=== PATIENT | male | born 1960 | race Caucasian/White ===

== ENCOUNTER 2016-09-29 09:39 | Emergency (ER) | payer OTHER, MEDICARE | END 2016-09-29 12:03 | disposition home or self-care (01) | LOC: FER 09:39 | DX: Z86.2 Personal history of diseases of the blood and blood-forming organs and certain disorders involving the immune mechanism (principal); Z88.0 Allergy status to penicillin | CPT/HCPCS: 93971; J1885 ==

== ENCOUNTER 2020-08-27 05:32 | Day surgery (SDC) | payer OTHER, MEDICARE ==
[~2020-08-27 05:32] MED LIST: ABILIFY5 M1 PO; ASPIRIN EC81 MG PO; ATIVAN1 MG PO; AZITHROMYCIN250 MG PO; BREO ELLIPTA 11 EACH INH; BUPROPION XL300 MG PO; CEFDINIR300 MG PO; COZAAR100 MG PO; COZAAR50 MG PO; DERMACINRX5000 UNIT PO; FLOMAX0.4 MG PO; LAMICTAL100 MG PO; LOPRESSOR50 MG PO; METHADONE 5MG TA5 MG PO; METHADONE10 MG PO; MIRALAX17 GM PO; NEURONTIN400 MG PO; OXYCODON-ACETA1 EAC1 PO; OXYCONTIN 10MG10 MG PO; PROCTOZONE-HC 230 GM TOP; PROTONIX 40MG T40 MG PO; QUDEXY XR25 MG PO; SEROQUEL 100MG100 MG PO; SERTRALINE HCL100 MG PO; SPIRIVA18 MCG INH; STOOL SOFTENER100 M1 PO; TOPAMAX50 MG PO; VENTOLIN HFA IN18 GM INH; VITAMIN B-1100 MG PO
[2020-08-27] MEDS ORDERED: PERCOCET 5-3251 EACH PO (06:35)
--- NOTE | 2020-08-27 15:11 | NUR ---
MET WITH PT. HE STATED THAT HE WANTS [facility] FOR PT/OT AND NURSING ASSESSMENT. ORDERED A ROLLING WALKER FROM [employer]. SPOKE WITH JENNIFER AT [facility] [phone]. PT. CO PAY FOR CHRIS IS $15.66.
[2020-08-28 06:12] LABS: BASOPHIL 0.6 % (0-2); EOSINOPHIL 0.2 % (0-5); HCT 26.5 % (42.0-52.0); HGB 8.4 g/dl (13.2-18.0); LYMPHOCYTE 12.6 % (15-48); MCH 27.7 pg (25.0-31.0); MCHC 31.7 g/dL (32.0-36.0); MCV 87.5 fL (78.0-100.0); MONOCYTE 10.7 % (0-12); MPV 10.3 fL (6.0-9.5); NEUTROPHIL 75.3 % (41-80); NRBC 0; PLT 221 K/uL (150-400); RBC 3.03 M/uL (4.70-6.00); RDW 17.3 % (11.5-14.0); WBC 10.7 K/uL (4.0-10.5)
[2020-08-28 06:32] LABS: BUN/CREAT RATIO (CALC) 23.7 RATIO; CREATININE 0.93 mg/dL (0.67-1.17)
[2020-08-28] MEDS ORDERED: ULTRA-LIGHT RO1 EACH XX (08:45)
[2020-08-28] MEDS ORDERED: FEOSOL325 MG PO (08:48)
[2020-08-28] MEDS ORDERED: XARELTO10 MG PO (08:48)
== END 2020-08-28 12:13 | disposition home health service (06) ==
LOC: FAS 05:32 → FMS 07:45
PROVIDERS: Orthopaedic Surgery
DX: M17.11 Unilateral primary osteoarthritis, right knee (principal); M21.161 Varus deformity, not elsewhere classified, right knee; I10 Essential (primary) hypertension; J44.9 Chronic obstructive pulmonary disease, unspecified; F41.9 Anxiety disorder, unspecified; F32.9 Major depressive disorder, single episode, unspecified; Z79.82 Long term (current) use of aspirin; Z79.899 Other long term (current) drug therapy; Z88.6 Allergy status to analgesic agent; Z88.0 Allergy status to penicillin
CPT/HCPCS: 36415; 73560; 80048; 85025; 86850; 86900; 86901; 94010; 94762; 97110; 97116; 97162; 97166; 97530-GP; 97535; C1713; C1776; J0171; J1100; J1170; J1885; J2250; J2704; J2795; J3010; J3370; J7050; J7120

== ENCOUNTER 2020-08-31 04:37 | Inpatient (IN) | payer OTHER, MEDICARE ==
[~2020-08-31 04:37] MED LIST changes: +FEOSOL325 MG PO; +PERCOCET 5-3251 EACH PO; +ULTRA-LIGHT RO1 EACH XX; +XARELTO10 MG PO
[2020-08-31 04:58] LABS: BASOPHIL 0.6 % (0-2); EOSINOPHIL 1.7 % (0-5); HCT 26.1 % (42.0-52.0); LYMPHOCYTE 17.8 % (15-48); MCH 27.6 pg (25.0-31.0); MCHC 30.7 g/dL (32.0-36.0); MPV 11.1 fL (6.0-9.5); NEUTROPHIL 69.3 % (41-80); NRBC 0; PLT 245 K/uL (150-400); RDW 17.8 % (11.5-14.0); WBC 9.6 K/uL (4.0-10.5)
[2020-08-31 05:08] LABS: INR 1.17 (0.9-1.2); PROTHROMBIN TIME 14.1 SECONDS (11.4-13.6)
[2020-08-31 05:09] LABS: PTT 32.6 SECONDS (22.2-34.7)
[2020-08-31 05:15] LABS: BILIRUBIN - TOTAL 0.4 mg/dL (0.2-1.0); BUN/CREAT RATIO (CALC) 11.6 RATIO; CREATININE 0.95 mg/dL (0.67-1.17); GLOBULIN (CALCULATION) 3.4 g/dL; TOTAL PROTEIN 6.4 g/dL (6.4-8.2)
[2020-09-01 07:05] LABS: BASOPHIL 0.1 % (0-2); EOSINOPHIL 0.1 % (0-5); HCT 21.8 % (42.0-52.0); HGB 6.7 g/dl (13.2-18.0); LYMPHOCYTE 8.9 % (15-48); MCH 27.6 pg (25.0-31.0); MCHC 30.7 g/dL (32.0-36.0); MCV 89.7 fL (78.0-100.0); MONOCYTE 8.9 % (0-12); MPV 10.8 fL (6.0-9.5); NEUTROPHIL 81.3 % (41-80); NRBC 0; PLT 252 K/uL (150-400); RBC 2.43 M/uL (4.70-6.00); RDW 17.5 % (11.5-14.0); WBC 14.7 K/uL (4.0-10.5)
[2020-09-01 07:23] LABS: BUN/CREAT RATIO (CALC) 13.6 RATIO; CREATININE 0.81 mg/dL (0.67-1.17); POTASSIUM 4.1 mmol/L (3.5-5.1)
[2020-09-02 10:20] LABS: BASOPHIL 0.8 % (0-2); EOSINOPHIL 1.8 % (0-5); HCT 28.2 % (42.0-52.0); LYMPHOCYTE 18.3 % (15-48); MCH 28.9 pg (25.0-31.0); MCHC 31.6 g/dL (32.0-36.0); MCV 91.6 fL (78.0-100.0); MPV 10.5 fL (6.0-9.5); NEUTROPHIL 67.3 % (41-80); NRBC 0; PLT 276 K/uL (150-400); RBC 3.08 M/uL (4.70-6.00); RDW 17.3 % (11.5-14.0); WBC 11.6 K/uL (4.0-10.5)
[2020-09-02 10:30] LABS: HGB 8.9 g/dl (13.2-18.0)
[2020-09-04 09:49] LABS: BASOPHIL 0.8 % (0-2); EOSINOPHIL 2.8 % (0-5); HCT 28.6 % (42.0-52.0); HGB 8.8 g/dl (13.2-18.0); LYMPHOCYTE 16.6 % (15-48); MCH 28.8 pg (25.0-31.0); MCHC 30.8 g/dL (32.0-36.0); MCV 93.5 fL (78.0-100.0); MONOCYTE 12.7 % (0-12); MPV 10.1 fL (6.0-9.5); NEUTROPHIL 66.1 % (41-80); NRBC 0; PLT 371 K/uL (150-400); RBC 3.06 M/uL (4.70-6.00); WBC 10.6 K/uL (4.0-10.5)
[2020-09-04 10:15] LABS: BUN/CREAT RATIO (CALC) 14.6 RATIO; CREATININE 1.03 mg/dL (0.67-1.17); POTASSIUM 3.5 mmol/L (3.5-5.1)
[2020-09-04] MEDS ORDERED: METHADONE 5MG TA5 MG PO (13:36)
[2020-09-04] MEDS ORDERED: ACETAMINOPHEN325 MG PO (13:36)
[2020-09-04] MEDS ORDERED: MILK OF MA400 MG/5 M PO (13:36)
[2020-09-04] MEDS ORDERED: LAXATIVE SUPPOS10 MG PR (13:36)
[2020-09-04] MEDS ORDERED: ZOFRAN4 M1 PO (13:36)
[2020-09-04] MEDS ORDERED: BUSPIRONE HCL15 MG PO (13:36)
[2020-09-04] MEDS ORDERED: OXY-IR 5MG5 MG PO (13:36)
[2020-09-04] MEDS ORDERED: STIMULANT LAXA1 EACH PO (13:36)
[2020-09-04] MEDS ORDERED: CLONAZEPAM0.5 MG PO ×3 (13:36→13:56)
[2020-09-04] MEDS ORDERED: FEOSOL325 MG PO (13:36)
[2020-09-04] MEDS ORDERED: TAB-A-VITE TA400 MC1 PO (13:36)
[2020-09-04] MEDS ORDERED: XARELTO10 MG PO (13:36)
== END 2020-09-04 15:45 | DRG 501 ==
LOC: FER 04:37 → FMS 08:01
PROVIDERS: Emergency Medicine; Nurse Practitioner Adult Health; Orthopaedic Surgery; ADMIT Allergy & Immunology Allergy
PROC: 0LQQ0ZZ Repair Right Knee Tendon, Open Approach (ICD-10-PCS; principal; 2020-08-31 11:30)
PROC: 0LQL0ZZ Repair Right Upper Leg Tendon, Open Approach (ICD-10-PCS; 2020-08-31 11:30)
PROC: 30233N1 Transfusion of Nonautologous Red Blood Cells into Peripheral Vein, Percutaneous Approach (ICD-10-PCS; 2020-09-01)
DX: S76.111A Strain of right quadriceps muscle, fascia and tendon, initial encounter (principal); T81.31XA Disruption of external operation (surgical) wound, not elsewhere classified, initial encounter; D62 Acute posthemorrhagic anemia; T84.022A Instability of internal right knee prosthesis, initial encounter; W19.XXXA Unspecified fall, initial encounter; F32.9 Major depressive disorder, single episode, unspecified; F41.9 Anxiety disorder, unspecified; S83.194A Other dislocation of right knee, initial encounter; G89.4 Chronic pain syndrome; J44.9 Chronic obstructive pulmonary disease, unspecified; Z20.822 Contact with and (suspected) exposure to COVID-19; Y83.8 Other surgical procedures as the cause of abnormal reaction of the patient, or of later complication, without mention of misadventure at the time of the procedure
CPT/HCPCS: 36415; 36430; 71045; 73560; 80048; 80053; 85025; 85610; 85730; 86850; 86900; 86901; 86922; 93005; 94010; 97110; 97116; 97162; 97166; 97530; 97530-GP; J1100; J1170; J1956; J2250; J2370; J2405; J2704; J2795; J3010; J7030; P9016; U0002

== ENCOUNTER 2021-02-20 07:18 | Emergency (ER) | payer MEDICARE ==
[~2021-02-20 07:18] MED LIST changes: +ACETAMINOPHEN325 MG PO; +BUSPIRONE HCL15 MG PO; +CLONAZEPAM0.5 MG PO; +LAXATIVE SUPPOS10 MG PR; +MILK OF MA400 MG/5 M PO; +OXY-IR 5MG5 MG PO; +STIMULANT LAXA1 EACH PO; +TAB-A-VITE TA400 MC1 PO; +ZOFRAN4 M1 PO
[2021-02-20 08:19] LABS: BASOPHIL 1.1 % (0-2); EOSINOPHIL 1.1 % (0-5); HCT 42.8 % (42.0-52.0); HGB 13.8 g/dl (13.2-18.0); LYMPHOCYTE 16.4 % (15-48); MCH 29.7 pg (25.0-31.0); MCHC 32.2 g/dL (32.0-36.0); MONOCYTE 8.3 % (0-12); MPV 11.1 fL (6.0-9.5); NEUTROPHIL 70.8 % (41-80); NRBC 0; PLT 286 K/uL (150-400); RBC 4.65 M/uL (4.70-6.00); RDW 17.3 % (11.5-14.0); WBC 11.2 K/uL (4.0-10.5)
[2021-02-20 08:50] LABS: ALBUMIN 3.7 g/dL (3.4-5.0); BILIRUBIN - TOTAL 0.4 mg/dL (0.2-1.0); BUN/CREAT RATIO (CALC) 17.5 RATIO; CREATININE 1.2 mg/dL (0.67-1.17); GLOBULIN (CALCULATION) 4.1 g/dL; POTASSIUM 4.7 mmol/L (3.5-5.1); TOTAL PROTEIN 7.8 g/dL (6.4-8.2)
== END 2021-02-20 11:24 | disposition home or self-care (01) ==
LOC: FER 07:18
PROVIDERS: Internal Medicine
DX: U07.1 COVID-19 (principal); N17.9 Acute kidney failure, unspecified; M54.9 Dorsalgia, unspecified; J44.9 Chronic obstructive pulmonary disease, unspecified; I10 Essential (primary) hypertension; Z90.49 Acquired absence of other specified parts of digestive tract; Z98.890 Other specified postprocedural states
CPT/HCPCS: 36415; 80053; 83605; 83880; 84484; 85025; 93005; J1170; J7120; U0002

== ENCOUNTER 2021-02-24 13:29 | Inpatient (IN) | payer MEDICARE ==
[~2021-02-24] VITALS: Ht 195.6 cm; Wt 150.8 kg
[2021-02-24 15:17] LABS: EOSINOPHIL 1.6 % (0-5); HCT 40.6 % (42.0-52.0); HGB 12.8 g/dl (13.2-18.0); LYMPHOCYTE 16.2 % (15-48); MCHC 31.5 g/dL (32.0-36.0); MCV 95.1 fL (78.0-100.0); MPV 10.2 fL (6.0-9.5); NEUTROPHIL 69.9 % (41-80); NRBC 0; PLT 217 K/uL (150-400); RBC 4.27 M/uL (4.70-6.00); RDW 16.8 % (11.5-14.0); WBC 10.4 K/uL (4.0-10.5)
[2021-02-24 15:33] LABS: ALBUMIN 3.6 g/dL (3.4-5.0); BILIRUBIN - TOTAL 0.5 mg/dL (0.2-1.0); BUN/CREAT RATIO (CALC) 14.5 RATIO; CREATININE 1.17 mg/dL (0.67-1.17); GLOBULIN (CALCULATION) 3.5 g/dL; POTASSIUM 4.4 mmol/L (3.5-5.1); TOTAL PROTEIN 7.1 g/dL (6.4-8.2)
[2021-02-25 07:03] LABS: BASOPHIL 0.3 % (0-2); EOSINOPHIL 0 % (0-5); HCT 40.4 % (42.0-52.0); LYMPHOCYTE 10.2 % (15-48); MCH 30.2 pg (25.0-31.0); MCHC 32.2 g/dL (32.0-36.0); MPV 10.4 fL (6.0-9.5); NEUTROPHIL 81.5 % (41-80); NRBC 0; PLT 222 K/uL (150-400); RDW 16.4 % (11.5-14.0); WBC 11.1 K/uL (4.0-10.5)
[2021-02-25 07:50] LABS: ALBUMIN 3.7 g/dL (3.4-5.0); BILIRUBIN - TOTAL 0.6 mg/dL (0.2-1.0); BUN/CREAT RATIO (CALC) 15.4 RATIO; CREATININE 0.91 mg/dL (0.67-1.17); GLOBULIN (CALCULATION) 3.5 g/dL; MAGNESIUM 1.9 mg/dL (1.8-2.4); PHOSPHORUS 3.1 mg/dL (2.6-4.7); POTASSIUM 3.9 mmol/L (3.5-5.1); TOTAL PROTEIN 7.2 g/dL (6.4-8.2)
[2021-02-25] MEDS ORDERED: ROBAXIN750 MG PO (09:38)
--- NOTE | 2021-02-25 10:18 | NUR ---
PT STATED HE WAS GOING TO LEAVE AMA TWICE BEFORE MD DISCHARGE. PT 100% ON ROOM AIR, NOT SHORT OF AIR, CLEAR LUNGS SOUNDS. ONLY C/O PAIN IN BETWEEN SHOULDER BLADES, HOME METHADONE WAS GIVEN. MD [place]'Darlene DILAUDID AND WAS NOTIFIED OF PT PAIN LEVEL.
[2021-02-25] MEDS ORDERED: ROBAXIN500 MG PO (10:48)
== END 2021-02-25 10:00 | disposition home or self-care (01) | DRG 177 ==
LOC: FER 13:29 → FTCU 17:30
PROVIDERS: Nurse Practitioner; Nurse Practitioner Family; ADMIT Internal Medicine
PROC: 8E0ZXY6 Isolation (ICD-10-PCS; principal; 2021-02-24)
PROC: XW033E5 Introduction of Remdesivir Anti-infective into Peripheral Vein, Percutaneous Approach, New Technology Group 5 (ICD-10-PCS; 2021-02-24)
DX: U07.1 COVID-19 (principal); J12.82 Pneumonia due to coronavirus disease 2019; J96.01 Acute respiratory failure with hypoxia; G89.29 Other chronic pain; M54.9 Dorsalgia, unspecified; I10 Essential (primary) hypertension; J44.9 Chronic obstructive pulmonary disease, unspecified; F41.8 Other specified anxiety disorders; M62.830 Muscle spasm of back; Z96.651 Presence of right artificial knee joint; Z79.899 Other long term (current) drug therapy; Z88.0 Allergy status to penicillin; Z88.5 Allergy status to narcotic agent; Z86.19 Personal history of other infectious and parasitic diseases; Z90.49 Acquired absence of other specified parts of digestive tract; Z98.890 Other specified postprocedural states; Z87.891 Personal history of nicotine dependence
CPT/HCPCS: 36415; 36600; 71045; 80053; 82803; 83605; 83735; 83880; 84100; 84145; 85025; 85379; 93005; 94010; 94640; 94664; C9399; J0456; J0696; J1100; J1170; J1650; J1885; J2060; J2550; J7050

== ENCOUNTER 2021-03-04 12:04 | Emergency (ER) | payer MEDICARE ==
[~2021-03-04 12:04] MED LIST changes: +ROBAXIN500 MG PO; +ROBAXIN750 MG PO
[2021-03-04 16:35] LABS: BILIRUBIN NEGATIVE (NEGATIVE); BLOOD NEGATIVE Ery/uL (NEGATIVE); CLARITY CLEAR (CLEAR); COLOR YELLOW (YELLOW); GLUCOSE (U) NORMAL (NORMAL); LEUKOCYTES NEGATIVE Leu/uL (NEGATIVE); NITRITE NEGATIVE (NEGATIVE); PROTEIN NEGATIVE (NEGATIVE); UROBILINOGEN 0.2 mg/dL (0.2-1.0)
[2021-03-04 16:35] LABS: EOSINOPHIL 1.6 % (0-5); HCT 43.5 % (42.0-52.0); HGB 13.7 g/dl (13.2-18.0); LYMPHOCYTE 12.4 % (15-48); MCH 29.6 pg (25.0-31.0); MCHC 31.5 g/dL (32.0-36.0); MONOCYTE 7.9 % (0-12); MPV 10.3 fL (6.0-9.5); NEUTROPHIL 76.5 % (41-80); NRBC 0; PLT 263 K/uL (150-400); RBC 4.63 M/uL (4.70-6.00); RDW 15.9 % (11.5-14.0); WBC 11.4 K/uL (4.0-10.5)
[2021-03-04 16:57] LABS: ALBUMIN 3.7 g/dL (3.4-5.0); BILIRUBIN - TOTAL 0.6 mg/dL (0.2-1.0); BUN/CREAT RATIO (CALC) 11.5 RATIO; CREATININE 1.04 mg/dL (0.67-1.17); POTASSIUM 3.6 mmol/L (3.5-5.1); TOTAL PROTEIN 7.7 g/dL (6.4-8.2)
[2021-03-04 18:31] LABS: LACTIC ACID 1.8 mmol/L (0.4-1.9)
== END 2021-03-04 19:09 | disposition home or self-care (01) ==
LOC: FER 12:04
PROVIDERS: Nurse Practitioner Family
DX: G89.29 Other chronic pain (principal); M54.9 Dorsalgia, unspecified; R11.0 Nausea; R10.12 Left upper quadrant pain; R22.2 Localized swelling, mass and lump, trunk; R06.02 Shortness of breath; R05 Cough; I10 Essential (primary) hypertension; Z87.19 Personal history of other diseases of the digestive system; Z88.0 Allergy status to penicillin; Z88.5 Allergy status to narcotic agent
CPT/HCPCS: 36415; 80053; 81003; 83605; 84484; 85025; 93005; J1170; J2405; J7030; Q9967

== ENCOUNTER 2022-01-03 07:14 | Emergency (ER) | payer MEDICARE | END 2022-01-03 09:44 | disposition home or self-care (01) | LOC: FER 07:14 | DX: S01.01XA Laceration without foreign body of scalp, initial encounter (principal); J44.9 Chronic obstructive pulmonary disease, unspecified; Z88.0 Allergy status to penicillin; Z88.5 Allergy status to narcotic agent; W19.XXXA Unspecified fall, initial encounter; Y92.009 Unspecified place in unspecified non-institutional (private) residence as the place of occurrence of the external cause ==